=== PATIENT | male | born 1970 | race Caucasian/White ===

== ENCOUNTER 2017-04-02 17:20 | Emergency (ER) | payer BC ==
[~2017-04-02] VITALS: Ht 177.8 cm; Wt 90.7 kg
[~2017-04-02 17:20] MED LIST: PREDNISONE 20MG20 MG PO; VALTREX500 MG PO
--- NOTE | 2017-04-02 17:35 | Emergency Room Report ---
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 Clinical Suspician of Infection? Mental Status: Sepsis Risk: Have you (or family members/close friends) recently traveled outside the [place]? If Yes, where/when: Have you had exposure to infectious disease within the past month? TB? Other? Specify: 47 years old white male who developed fever, body aches, vomiting and dry heaves and watery diarrhea 4 days duration. He is feeling weaker and has periumbilical abdominal cramps. he denies hematemesis melena, or coffee-ground emesis. Source patient, RN notes reviewed Exam Limitations no limitations ALLERGIES Uncoded Allergies: ANTIBIOTIC EXCEPT FOR CIPRO FAMILY (Mild, 10/15/14) Home Medications Active Scripts VALACYCLOVIR HCL (Valtrex) 500 MG PO BID #10 TAB Prov: 10/15/14 Prednisone (Prednisone 20MG) 60 MG PO DAILY #12 TAB Prov: 10/15/14 History Medical History General CAD? No Angina: No [place]: No Hypertension? No Hyperlipidemia? No CHF? No COPD? No Asthma? No Anemia? No Hernia? No Thyroid Problems? No Hypothyroidism? No CVA? No Seizures? No Diabetes? No End Stage Renal Disease? No UTI? No Stones? No GB Disease: No Nephritic Syndrome? No Asplenia? No Hepatitis? No Sickle Cell Disease? No Arthritis? No Cataracts? No Glaucoma? No MRSA? No TB? No Cancer? No Immunization Hx DT/Tetanus Unknown Surgical Hx Previous Surgery?Y LEFT ANKLE TONSILS Social History Alcohol Alcohol: No Review of Systems All Other Systems Reviewed and Negative Constitutional no symptoms reported Eyes no symptoms reported ENT no symptoms reported. Respiratory no symptoms reported Cardiovascular no symptoms reported Gastrointestinal see HPI, abdominal pain, constipation, diarrhea, nausea Genitourinary no symptoms reported. Musculoskeletal no symptoms reported Skin no symptoms reported Psychiatric/Neurological no symptoms reported Physical Exam Vital Signs Vital Signs Date Time Temp Pulse Resp B/P Pulse O2 O2 Flow FiO2 Ox Delivery Rate 04/02 2000 70 18 110/66 97 04/02 1752 18 04/02 1729 98.3 82 18 132/75 99 - WBC >12,000 or <4,000 or 10% bands? 2 or more SIRS Criteria Met? B/P:132/75 MAP:94 Creatinine >2.0? UA output<0.5ml/kg/hr for 2 hrs? Platelet count >100,000? Lactate >2.0mmol/1? INR >1.2 or PTT > than 60 sec? Evidence of Organ Dysfunction? Provider documented clinical suspician of infection? N Sepsis Criteria Count: 0 Sepsis Risk: Low Sepsis Risk General Appearance normal appearance, WD/WN Eye Exam - bilateral eye normal exam, bilateral eye PERRL, bilateral eye EOMI Ear, Nose, Throat hearing grossly normal, normal ENT inspection Neck normal inspection, non-tender, supple, full range of motion Respiratory Status Yes: trachea midline, chest symmetrical, non tender chest. No: respiratory distress. Lung Sounds bilateral: normal breath sounds, lungs clear. Cardiovascular normal exam, regular rate/rhythm, no peripheral edema, no gallop, no JVD, no murmur, no rub, normal peripheral pulses Peripheral Pulses Pulses normal Yes Gastrointestinal rigid, guarding, no rebound, voluntary rigidity in the periumbilical region without cross or rebound tendernesss.positive bowel sounds. Back normal inspection, no CVA tenderness, no vertebral tenderness Extremities non-tender, normal range of motion, normal inspection Male Genitalia normal genitalia, normal prostate, no hernia Neurologic alert, floor care specialist II-XII nml as tested, normal exam, oriented x 3 Reflexes Reflexes normal Yes Medical Decision Making LABS/Meds/Orders Pt receiving controlled substance in ED? No Results/Orders Laboratory Tests 04/02/17 1740: Sodium 133 L, Potassium 3.3 L, Chloride 97 L, Carbon Dioxide 23, BUN 20 H, Creatinine 1.1, Estimated Creat Clear 104, Estimated GFR (MDRD) 71, Glucose 101, Calcium 10.1, Total Bilirubin 0.8, AST 31, ALT 37, Alkaline Phosphatase 84, Total Protein 8.4 H, Albumin 3.7, Globulin 4.7 H, Albumin/Globulin Ratio 0.8 L, Lipase 108, WBC 9.7, RBC 5.75, Hgb 17.6, Hct 50.1, MCV 87.1, RDW 13.1, Plt Count 275, MPV 7.3 L, Gran % 65.1, Gran # 6.3, Lymphocytes % 22.1, Monocytes % 8.5, Eosinophils % 3.5, Basophils % 0.9, Lymphocytes # 2.1, Monocytes # 0.8, Eosinophils # 0.3, Basophils # 0.1, PUBS MCHC 35.2, MCH 30.7 Current Medication Orders Sig/Yamileth Start time Last Medication Dose Route Stop Time Status Admin Potassium Chloride 40 MEQ ONCE ONE 04/02 1900 DC PO 04/02 1901 Famotidine 0 .STK-MED ONE 04/02 1746 DC IV Famotidine 20 MG ONCE ONE 04/02 1745 DC 04/02 IV 04/02 1746 175 Ketorolac 30 MG ONCE ONE 04/02 1745 DC 04/02 Tromethamine IV 04/02 1746 175 Ketorolac 0 .STK-MED ONE 04/02 1745 DC Tromethamine .ROUTE Loperamide HCl 4 MG ONCE ONE 04/02 1745 DC PO 04/02 1746 Ondansetron HCl 4 MG ONCE ONE 04/02 1745 DC 04/02 IV 04/02 1746 175 Ondansetron HCl 0 .STK-MED ONE 04/02 1745 DC .ROUTE Sodium Chloride 8 ML ONCE ONE 04/02 1745 DC 04/02 IV 04/02 1746 175 Sodium Chloride 1,000 ML .STK-MED ONE 04/02 1740 DC IV Orders Procedure Date/time Status DIET-NOTHING BY MOUTH 04/[address] ABD/PELVIS REQ 04/02 1736 Active URINALYSIS/COMPLETE 04/02 1736 Active LIPASE 04/02 1736 Complete CBC WITH AUTO DIFF 04/02 1736 Complete CHEM 12 PROFILE 04/02 1736 Complete Departure Departure Time of Disposition 1954 Disposition DC Home or Self Care(routine) Clinical Impression Primary Impression: Enteritis Condition STABLE Referrals Bruno WRAY,[facility] Additional Instructions Chucky tolerated the po intake and felt better after medication and wanted to be discharged with follow up with Dr Carr. zofran zantac omodium flagyl gotrade 16 oz q 4 BRAT diet tomorrow returen if needed. Discharge Counseling Counseled pt/family regarding diagnosis, test results, medications/RX, home care, follow up needs Prescriptions Current Visit Scripts Ondansetron (Zofran 4MG Odt) 4 MG PO Q6HP PRN NAUSEA AND VOMITING #6 ODT Loperamide HCl (Imodium A-D) 2 MG PO Q6HP PRN diarrhea #12 CAPSULE Metronidazole (Flagyl) 500 MG PO Q8 #21 TAB DICYCLOMINE HCL (Bentyl) 10 MG PO Q8HP PRN cramps #21 CAP ED Critical Care Critical Care No If Critical Care minutes are documented, the time involved in the performance of seperately reportable procedures was not counted toward critical care time documented. I directly delivered medical care to this critically ill and/or injured patient. Timely evaluation and treatment was necessary to address the significant organ system(s) dysfunction present in this patient. at 2003
[2017-04-02 17:45] LABS: HEMOGLOBIN 17.6 g/dL (14.1-18.0); LYMPH # 2.1 K/mm3 (0.7-4.5); LYMPH % 22.1 % (10-50)
--- OUTSIDE RECORDS SUMMARY | 2017-04-02 17:46 | External Medical Summary Rpt | CCD ---
Demographics Preferred Language Maori Marital Status Unknown Taoism Affiliation Unknown Race Unknown Ethnic Group Unknown Author Author [employer] Address Unknown Phone Immunization No patient found.
--- OUTSIDE RECORDS SUMMARY | 2017-04-02 17:46 | External Medical Summary Rpt ---
Author Author [employer] Phan, [employer] Organization [employer] Address Unknown Phone Unavailable
--- OUTSIDE RECORDS SUMMARY | 2017-04-02 17:46 | External Medical Summary Rpt | CCD ---
Author Author [employer] Organization [employer] Address Unknown Phone Unavailable Purpose Continuity of Care Document - through 2016
--- OUTSIDE RECORDS SUMMARY | 2017-04-02 17:46 | External Medical Summary Rpt | CCD ---
Author Author , [employer] HERBERT Address Unknown Phone .[employer] Purpose Continuity of Care Document - through 2016
--- OUTSIDE RECORDS SUMMARY | 2017-04-02 17:46 | External Medical Summary Rpt | CCD ---
Author Author , [employer] HERBERT Address Unknown Phone [email or web address] Purpose Continuity of Care Document - through 2016
--- OUTSIDE RECORDS SUMMARY | 2017-04-02 17:46 | External Medical Summary Rpt | CCD ---
Demographics Preferred Language Nepali Marital Status Unknown Nondenominational Affiliation Unknown Race Unknown Ethnic Group Unknown Author Author [facility] Address Unknown Phone Immunization No patient found.
--- NOTE | 2017-04-02 18:48 | RADIOLOGY REPORT PS360 ---
CT ABD PELVIS W/ CONTRAST HISTORY: PERIUMBILICAL PAIN; N/V/D Patient Age: 47 years: Male Ordering Physician: Cristopher Ziegler MD TECHNIQUE: Helical CT scanning performed the abdomen and pelvis following 75 cc Isovue-370. COMPARISON : None available FINDINGS Lower thorax. Lung bases clear. No active disease. Heart normal size. Abdomen/pelvis: Liver appears normal. Spleen unremarkable. Pancreas appears satisfactory. Adrenals unremarkable. Gallbladder. No calcified stones. Kidneys. No current urinary tract obstruction. Tiny nonobstructive calculi bilaterally. Left kidney: small punctate nonobstructive 4 mm left renal calculusAt Mid lower portion left kidney. Tiny 2.5 mm calculus lower pole left kidney axial image 63. Right kidney. Tiny 3 mm calculus axial slice 51 at upper portion right kidney. Nonobstructive. Ureters normal course and caliber bilaterally. Pelvis. Bladder unremarkable. Normal prostate. No free fluid no free air in the abdomen or pelvis. . No retroperitoneal nor mesenteric nor pelvic adenopathy or mass. GI tract. Regarding right lower quadrant pain the appendix is normal. The terminal ileum appears upper normal thickness. Small bowel. Increased fluid throughout nondilated small bowel with scattered moderate air-fluid levels with areas of upper normal caliber small bowel. Large bowel. Liquid stool air-fluid levels left colon and rectosigmoid reflect diarrhea.... Upper normal to slightly thickened large bowel wall at right and transverse colon but this may merely be accentuated by the lack of distention in its contracted state. Overall findings most compatible with uncomplicated enteritis Osseous.. No osseous lesions. Degenerative disc changes and narrowing L5/S1 with posterior hypertrophic ridging. Mild facet arthropathy L5/S1 L4/5 IMPRESSION 1 Appendix within normal limits 2 Findings are most compatible with enteritis benign possible minor colitis: . Liquid stool throughout descending colon & rectosigmoid reflecting diarrhea. . Borderline to mild wall thickening right & transverse colon may reflect mild colitis. . Slight increased fluid throughout small bowel may reflect enteritis.. With Scattered moderate air-fluid levels nondilated small bowel. 3 Small punctate nonobstructive renal calculi incidentally noted bilaterally.
[2017-04-02] MEDS ORDERED: IMODIUM A-D2 M3 PO (20:03)
[2017-04-02] MEDS ORDERED: BENTYL10 M1 PO (20:03)
[2017-04-02] MEDS ORDERED: FLAGYL500 M1 PO (20:03)
[2017-04-02] MEDS ORDERED: ZOFRAN ODT4 MG PO (20:03)
[2017-04-02 20:15] VITALS: BP 110/66
== END 2017-04-02 20:23 | disposition home or self-care (01) ==
LOC: ER 17:20
PROVIDERS: Emergency Medicine
DX: K52.9 Noninfective gastroenteritis and colitis, unspecified (principal)
CPT/HCPCS: J2405

== ENCOUNTER → 2017-04-18 | Outpatient (CLI) | payer BC ==
[~2017-04-18] MED LIST changes: +BENTYL10 M1 PO; +FLAGYL500 M1 PO; +IMODIUM A-D2 M3 PO; +ZOFRAN ODT4 MG PO
--- NOTE | 2017-04-18 17:05 | RADIOLOGY REPORT PS360 ---
CHEST(2 VIEWS-NOT PORTABLE) HISTORY: RIGHT SIDED CHEST PAIN ORDERING PHYSICIAN: Shantel Han MD PATIENT AGE: 47 years COMPARISON: None available FINDINGS: The cardiomediastinal silhouette and pulmonary vascularity are within normal limits. The lungs are clear without infiltrates, suspicious nodules, or pleural effusions. No acute bony abnormalities. IMPRESSION: Negative chest, no acute finding
== END ==
LOC: RAD 16:09 → LAB 16:09
DX: M25.50 Pain in unspecified joint (principal)